=== PATIENT | male | born 2000 | race Two or more races ===

== ENCOUNTER 2021-12-01 13:52 | Emergency (ER) | payer BC ==
[2021-12-01 13:57] VITALS: TEMP 98.4
[2021-12-01] MEDS ORDERED: LORazepam 1 MG TAB PO STA (14:18)
--- NOTE | 2021-12-01 14:21 | ED ---
General Adult HPI - General Chief complaint: Dizziness Stated complaint: Syncope Time Seen by Provider: 12/01/21 14:05 Source: patient, EMS, RN notes reviewed, old records reviewed Mode of arrival: EMS Limitations: no limitations - History of Present Illness Initial comments: This is a 21-year-old male who presents emergency Department complaining of an xiety. Patient states his been under a lot of stress the last couple months and while at work today he received a phone call that really got stressed out. She went into the human resources office and he continued to get more anxious he went to stand up and he was hyperventilating and he almost passed out and fell to the floor. Patient states at no time was he unconscious. Patient states he felt some of his muscles were cramping but all symptoms have resolved currently. Patient states he believes this is all secondary to anxiety and stress. Patient states she's had a history of some anxiety but never to this degree. Patient currently feels back to his baseline he denies any headache denies any numbness weakness. Patient denies any chest pain difficulty breathing first breath per patient denies any abdominal pain patient denies nausea vomiting diarrhea. - Related Data Allergies Allergy/AdvReac Type Severity Reaction Status Date / Time No Known Allergies Allergy Verified 12/01/21 13:57 Review of Systems ROS Statement: Those systems with pertinent positive or pertinent negative responses have been documented in the HPI. ROS Other: All systems not noted in ROS Statement are negative. Past Medical History Past Medical History: No Reported History History of Any Multi-Drug Resistant Organisms: None Reported Additional Past Surgical History / Comment(s): heart surgery at 7yrs old Past Psychological History: No Psychological Hx Reported Smoking Status: Never smoker Past Alcohol Use History: None Reported Past Drug Use History: None Reported General Exam - General Exam Comments Initial Comments: GENERAL: Patient is well-developed and well-nourished. Patient is nontoxic and well- hydrated and is in mild distress. ENT: Neck is soft and supple. No significant lymphadenopathy is noted. Oropharynx is clear. Moist mucous membranes. Neck has full range of motion without eliciting any pain. EYES: The sclera were anicteric and conjunctiva were pink and moist. Extraocular movements were intact and pupils were equal round and reactive to light. Eyelids were unremarkable. PULMONARY: Unlabored respirations. Good breath sounds bilaterally. No audible rales rhonchi or wheezing was noted. CARDIOVASCULAR: There is a regular rate and rhythm without any murmurs gallops or rubs. ABDOMEN: Soft and nontender with normal bowel sounds. SKIN: Skin is clear with no lesions or rashes and otherwise unremarkable. NEUROLOGIC: Patient is alert and oriented x3. Cranial nerves II through XII are grossly intact. Motor and sensory are also intact. Normal speech, volume and content. Symmetrical smile. MUSCULOSKELETAL: Normal extremities with adequate strength and full range of motion. LYMPHATICS: No significant lymphadenopathy is noted PSYCHIATRIC: Patient is mildly anxious Limitations: no limitations Course Vital Signs 12/01/21 12/01/21 13:54 14:25 Temperature 98.4 F Pulse Rate 82 Pulse Rate [ 71 Left Sitting Pulse Oximetery ] Pulse Rate [ 75 Left Standing Pulse Oximetery ] Pulse Rate [ 70 Left Supine Pulse Oximetery ] Respiratory 14 16 Rate Blood Pressure 121/71 Blood Pressure 108/70 [Left Arm Sitting] Blood Pressure 116/69 [Left Arm Standing] Blood Pressure 119/67 [Left Arm Supine] O2 Sat by Pulse 96 Oximetry Medical Decision Making - Medical Decision Making EKG shows sinus rhythm at 74 bpm VT interval 234 QRS is 97 QT interval 341 QTC is 368. Patient's EKG shows no ST segment elevation or depression. Patient received Ativan in the emergency department and was feeling considerably better. Patient was requesting to leave stating he would follow-up but at the moment he does not have a primary medical care doctor. Disposition Clinical Impression: Anxiety Disposition: HOME SELF-CARE Condition: Good Instructions (If sedation given, give patient instructions): Anxiety (ED) Is patient prescribed a controlled substance at d/c from ED?: No Referrals: None,Stated [Primary Care Provider] - 1-2 days Time of Disposition: 15:29
[2021-12-01 15:38] VITALS: BP 116/69; PULSE 74; RESP 18
== END 2021-12-01 15:36 | disposition home or self-care (01) ==
LOC: EC 13:52
DX: F41.9 Anxiety disorder, unspecified (principal)
CPT/HCPCS: 99284

== ENCOUNTER 2021-12-20 11:30 | Emergency (ER) | payer BC ==
[2021-12-20 11:39] VITALS: RESP 16
[2021-12-20] MEDS ORDERED: SODIUM CHLORIDE 0.9% 1,000 ML IV STA (11:50)
[2021-12-20] MEDS ORDERED: LORazepam 2 MG/ML INJ IV STA (11:51)
[2021-12-20 12:00] LABS: Basophils # (A) 0.1 k/uL (0-0.2); Basophils % (A) 0 %; Eosinophils % (A) 0 %; HCT 46.2 % (39.0-53.0); HGB 15.5 gm/dL (13.0-17.5); Lymphocytes # (A) 2.5 k/uL (1.0-4.8); Lymphocytes % (A) 19 %; MCH 31.9 pg (25.0-35.0); MCHC 33.7 g/dL (31.0-37.0); MCV 94.7 fL (80.0-100.0); Mean Platelet Volume 7.6; Monocytes # (A) 0.6 k/uL (0-1.0); Monocytes % (A) 5 %; Neutrophils # (A) 9.6 k/uL (1.3-7.7); Neutrophils % (A) 74 %; Platelet Count 214 k/uL (150-450); RBC 4.87 m/uL (4.30-5.90); WBC 12.9 k/uL (4.0-11.0)
[2021-12-20 12:11] LABS: ALT 21 U/L (4-49); AST 21 U/L (17-59); African American GFR (CKD) >90 (>60 ml/min/1.73 sqM); Albumin 4.8 g/dL (3.5-5.0); Alkaline Phosphatase 61 U/L (38-126); Anion Gap 11 mmol/L; Blood Urea Nitrogen 17 mg/dL (9-20); Calcium 10.7 mg/dL (8.4-10.2); Carbon Dioxide 24 mmol/L (22-30); Chloride 104 mmol/L (98-107); Glucose 101 mg/dL (74-99); Non-African American GFR(CKD) >90 (>60 ml/min/1.73 sqM); Potassium 3.7 mmol/L (3.5-5.1); Sodium 139 mmol/L (137-145); Total Bilirubin 1.1 mg/dL (0.2-1.3); Total Protein 7.4 g/dL (6.3-8.2)
--- NOTE | 2021-12-20 13:30 | ED ---
General Adult HPI - General Chief complaint: Chest Pain Stated complaint: NIECY, chest pain Time Seen by Provider: 12/20/21 11:45 Source: EMS Mode of arrival: EMS Limitations: no limitations - History of Present Illness Initial comments: Patient is a 21-year-old male presenting with chief complaint of anxiety. Patient states that while at work he began feeling anxious, this led to hyperventilation, chest tightness, and numbness of the hands and feet. Patient states he felt somewhat nauseous as well. At this time patient states that symptoms have mostly dissipated, he is still feeling a bit anxious. He denies any difficulty breathing, chest pain, weakness, palpitations, headache, vision or hearing changes, fever, chills, vomiting, diarrhea, hematochezia, melena, dysuria, hematuria, URI-like symptoms. - Related Data Previous Rx's Medication Instructions Recorded hydrOXYzine HCL [Atarax] 50 mg PO HS PRN #10 tablet 12/20/21 Allergies Allergy/AdvReac Type Severity Reaction Status Date / Time No Known Allergies Allergy Verified 12/20/21 13:22 Review of Systems ROS Statement: Those systems with pertinent positive or pertinent negative responses have been documented in the HPI. ROS Other: All systems not noted in ROS Statement are negative. Past Medical History Past Medical History: No Reported History History of Any Multi-Drug Resistant Organisms: None Reported Additional Past Surgical History / Comment(s): heart surgery at 7yrs old Past Psychological History: No Psychological Hx Reported Smoking Status: Never smoker Past Alcohol Use History: None Reported Past Drug Use History: None Reported General Exam Limitations: no limitations General appearance: alert, in no apparent distress Head exam: Present: atraumatic, normocephalic, normal inspection Eye exam: Present: normal appearance, EOMI. Absent: scleral icterus, periorbital swelling Neck exam: Present: normal inspection Respiratory exam: Present: normal lung sounds bilaterally. Absent: respiratory distress, wheezes, rales, rhonchi, stridor Cardiovascular Exam: Present: regular rate, normal rhythm, normal heart sounds. Absent: systolic murmur, diastolic murmur, rubs, gallop, clicks Extremities exam: Present: normal inspection Neurological exam: Present: alert, oriented X3, CN II-XII intact Psychiatric exam: Present: normal affect, normal mood Skin exam: Present: warm, dry, intact, normal color. Absent: rash Course Vital Signs 12/20/21 12/20/21 11:32 14:15 Temperature 97.7 F Pulse Rate 52 L 100 Respiratory 16 16 Rate Blood Pressure 122/63 130/72 O2 Sat by Pulse 98 98 Oximetry EKG Findings - EKG Comments: EKG Findings:: Sinus bradycardia rate of 51. WA interval 147. QRS duration 95. QTc 352. Some J-point elevation in leads V3, V4, V5. No ischemic changes. Medical Decision Making - Medical Decision Making Patient is a 21-year-old male presenting with chief complaint of anxiety. Patient states he had an anxiety attack at work which included some chest tightness, hyperventilation, numbness and tingling of the extremities. On e xamination, patient states that symptoms have mostly dissipated and he is still coming down. On examination heart and lungs are clear to auscultation. EKG shows no ischemic changes. Lab work is grossly negative. Patient was given fluids and Ativan, he reports improvement after medications. Patient appears stable for discharge with outpatient follow-up at this time. Follow-up with PCP in one to 2 days. I provided the patient with a referral to a PCP. Report back to ER with any new or worsening symptoms. Take medication as prescribed, may cause drowsiness, do not take before driving or operating heavy machinery. Discussed return parameters answered all questions. Patient conveyed verbal understanding and agreed to the plan. I discussed this case with my attending Dr. Bonilla. - Lab Data Result diagrams: 12/20/21 11:52 12/20/21 11:52 Lab Results 12/20/21 12/20/21 12/20/21 Range/Units 11:52 11:52 11:52 WBC 12.9 H (4.0-11.0) k/uL RBC 4.87 (4.30-5.90) m/uL Hgb 15.5 (13.0-17.5) gm/dL Hct 46.2 (39.0-53.0) % MCV 94.7 (80.0-100.0) fL MCH 31.9 (25.0-35.0) pg MCHC 33.7 (31.0-37.0) g/dL RDW 12.0 (11.5-15.5) % Plt Count 214 (150-450) k/uL MPV 7.6 Neutrophils % 74 % Lymphocytes % 19 % Monocytes % 5 % Eosinophils % 0 % Basophils % 0 % Neutrophils # 9.6 H (1.3-7.7) k/uL Lymphocytes # 2.5 (1.0-4.8) k/uL Monocytes # 0.6 (0-1.0) k/uL Eosinophils # 0.0 (0-0.7) k/uL Basophils # 0.1 (0-0.2) k/uL Sodium 139 (137-145) mmol/L Potassium 3.7 (3.5-5.1) mmol/L Chloride 104 (98-107) mmol/L Carbon Dioxide 24 (22-30) mmol/L Anion Gap 11 mmol/L BUN 17 (9-20) mg/dL Creatinine 0.93 (0.66-1.25) mg/dL Est GFR (CKD-EPI)AfAm >90 (>60 ml/min/1.73 sqM) Est GFR (CKD-EPI)NonAf >90 (>60 ml/min/1.73 sqM) Glucose 101 H (74-99) mg/dL Calcium 10.7 H (8.4-10.2) mg/dL Total Bilirubin 1.1 (0.2-1.3) mg/dL AST 21 (17-59) U/L ALT 21 (4-49) U/L Alkaline Phosphatase 61 (38-126) U/L Troponin I <0.012 (0.000-0.034) ng/mL Total Protein 7.4 (6.3-8.2) g/dL Albumin 4.8 (3.5-5.0) g/dL TSH 1.040 (0.465-4.680) mIU/L Disposition Clinical Impression: Anxiety Disposition: HOME SELF-CARE Condition: Good Instructions (If sedation given, give patient instructions): Chest Pain (ED), Anxiety (ED) Additional Instructions: Follow-up with PCP, I provided a referral to a PCP. Report back to ER if any new or worsening symptoms. Take medication as prescribed. Medication may cause drowsiness, do not take before driving or operating heavy machinery. Prescriptions: hydrOXYzine HCL [Atarax] 50 mg PO HS PRN #10 tablet PRN Reason: Anxiety Is patient prescribed a controlled substance at d/c from ED?: No Referrals: McPhilimy,Norm, DO [Doctor of Osteopathic Medicine] - 1-2 days Time of Disposition: 13:30
[2021-12-20 14:23] VITALS: BP 130/72; PULSE 100; TEMP 97.7
== END 2021-12-20 14:28 | disposition home or self-care (01) ==
LOC: EC 11:30
DX: F41.9 Anxiety disorder, unspecified (principal); R06.4 Hyperventilation; R20.2 Paresthesia of skin
CPT/HCPCS: 36415; 93005; 80053; 84443; 84484; 85025; 99284; 96374; 96361; J2060; 99285